=== PATIENT | male | born 1985 | race Caucasian/White ===

== ENCOUNTER → 2023-07-02 08:57 | Outpatient (REF) | payer OTHER, SELFPAY | LOC: RAD 08:57 | PROVIDERS: ATTENDING PHYSICIAN Family Medicine | DX: R74.8 Abnormal levels of other serum enzymes (principal) | CPT/HCPCS: 76700 ==

== ENCOUNTER → 2025-01-05 13:26 | Outpatient (REF) | payer OTHER, SELFPAY | LOC: PAVMRI 13:26 | PROVIDERS: ATTENDING PHYSICIAN Specialist; FAMILY PHYSICIAN Family Medicine | DX: M54.12 Radiculopathy, cervical region (principal) | CPT/HCPCS: 72141 ==

== ENCOUNTER → 2025-03-16 14:15 | Outpatient (REF) | payer OTHER, SELFPAY | LOC: MRI 14:15 | PROVIDERS: ATTENDING PHYSICIAN Neurological Surgery; FAMILY PHYSICIAN Family Medicine | DX: M95.8 Other specified acquired deformities of musculoskeletal system (principal); S24.0XXA Concussion and edema of thoracic spinal cord, initial encounter | CPT/HCPCS: 71552; A9575 ==